=== PATIENT | female | born 1945 | race Caucasian/White ===

== ENCOUNTER 2018-08-20 07:42 | Day surgery (SDC) | payer MEDICARE, OTHER ==
[~2018-08-20 07:42] MED LIST: Lidocaine 1%/Sod Bicarbonate in NS 8.4% 1 ML Syringe IDERM PRN; Sodium Chloride 0.9% 10 ML Syringe FLUSH PRN
[2018-08-20] MEDS: Lactated Ringers 1,000 ML IV SCH ×2 (08:10→14:15)
[2018-08-20] MEDS ORDERED: Propofol 200 MG/20 ML SDV ONE (09:14)
[2018-08-20] MEDS ORDERED: fentaNYL 100 MCG/2 ML SDV ONE ×2 (09:15→10:38)
[2018-08-20] MEDS ORDERED: Midazolam 1 MG/ML 2 ML SDV ONE (09:15)
[2018-08-20] MEDS ORDERED: Lidocaine 1% with EPINEPHrine 1:100,000 20 ML MDV ONE ×2 (09:57)
[2018-08-20] MEDS ORDERED: Bupivacaine 0.5%/EPINEPHrine 1:200,000 50 ML MDV ONE (09:57)
[2018-08-20] MEDS ORDERED: Methylene Blue 50 MG/10 ML Ampule ONE (10:07)
--- NOTE | 2018-08-20 11:09 | US ---
Ultrasound-guided needle localizing impression of right breast lesion Procedure was explained to the patient. Patient agreed to the study and consent had been signed. Abnormality was localized by ultrasound. Patient then prepped and draped in the usual fashion. Skin was anesthetized with 1% lidocaine. Needle was placed through the lesion and needle replaced with spring-hook wire. Two-view mammogram study was obtained which will be dictated separately. Impression: 1. Successful ultrasound-guided placement of localization wire within right breast lesion. Diagnostic code #2
--- NOTE | 2018-08-20 11:09 | MY ---
Mammogram: Two views were obtained with needle localization wire in place. Needle localization wire passes through the left breast mass in close approximation to stereotactic marking clip. Impression: 1. Successful needle localization as noted above. Diagnostic code #2
[2018-08-20] MEDS ORDERED: ceFAZolin 1 GM Vial ONE ×2 (11:15)
[2018-08-20] MEDS ORDERED: Ondansetron 4 MG/2 ML SDV ONE (11:17)
[2018-08-20] MEDS ORDERED: Ketorolac 30 MG/ML SDV ONE (11:17)
[2018-08-20] MEDS ORDERED: ePHEDrine/Normal Saline 25 MG/5 ML Syringe ONE (11:23)
[2018-08-20] MEDS ORDERED: Lactated Ringers 1,000 ML ONE (11:56)
--- NOTE | 2018-08-20 12:53 | MY ---
Addendum: Previous report states left breast mass which is incorrect. Mass was within the right breast and this was a specimen radiograph exam from previous right breast lumpectomy. --- Addendum1 above dictated on [08/20/2018 12:54] by [Santiago Reeder, Duke Perales] --- --- Addendum1 above signed on [08/20/2018 12:55] by [Santiago Reeder Hilton J.] --- --- Original report below dictated on [08/20/2018 12:48] by [Santiago Reeder, Duke Perales] --- --- Original report below signed on [08/20/2018 12:50] by [Santiago Reeder, Duke Perales] --- Specimen radiograph: Single radiographic view was obtained of specimen obtained during biopsy. Study shows stereotactic marking clip and localization wire in place. Left breast mass is also centered within the specimen. Impression: 1. Study appears to represent successful lumpectomy of previous left breast mass as described above. Diagnostic code #2 --- Addendum1 signed ---
--- NOTE | 2018-08-20 13:22 | PCM.PRNOTE ---
- Free Text/Narrative Note: DATE OF PROCEDURE: PROCEDURE: Right breast wire localized lumpectomy with sentinel lymph node biopsy PREOP DX: Right breast mass POSTOP DX: same SURGEON: Mindy Woodall MD PLASTIC MAKER: Tex Claire CRNA ANESTHETIC: General anesthetic EBL: 40 mL IVF: 1400 mL UOP: 0 mL FINDINGS: 1. Right breast mass with localization wire 2. Right axillary lymph nodes with uptake of lymphoscintigraphy dye and blue dye PATHOLOGY: 1. Right breast lumpectomy 2. Lateral margin (of lumpectomy) 3. Right axillary node #1 (ex vivo count 196) 4. Right axillary node #2 (ex vivo count 184) 5. Right axillary node #3 (ex vivo count 243) 6. Right axillary node #4 (ex vivo count 47) 7. Right axillary node #5 (ex vivo count 31) INDICATION: The patient is a 73-year old lady who initially presented with a lump in the right breast. 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 Surgical intervention was recommended. The risks, benefits, alternative and rationale of surgery explained including the risk of not operating, bleeding, infection, seroma or hematoma. Informed consent was obtained for a wire localized right lumpectomy with sentinel lymph node biopsy. DESCRIPTION OF THE PROCEDURE: The patient was brought to the operating room and placed in supine position on the operating table. General anesthesia was induced without difficulty. Preoperative antibiotics were administered according to SCIP guidelines. Lymphoscintigraphy dye was injected in 4 quadrants around the areolar border. The right chest and axilla were prepped and draped in a sterile fashion. A surgical timeout was performed. We then injected blue dye in 4 quadrants around the area where border. The breast was then massaged for 5 minutes The incision was marked along the superior Jeffrey her border. We also marked the place of highest uptake in the axilla. We began by injecting local anesthetic into the area of the incisions. An incision was made and flaps were raised orienting the incision to the area of the localization wire. Once the wire was located, it was brought into the surgical field in through the incision. The specimen was dissected from the surrounding tissues using the Bovie device. The specimen was oriented and sent to mammography for analysis of clip and wire placement in the specimen. The remaining cavity was inspected to ensure hemostasis and no additional abnormalities. Hemostasis was achieved using the Bovie device. Cavity was irrigated using sterile water. We then turned our attention to the axilla. A incision was made along the skin crease in the axilla. We then used the probe to isolate the area of high uptake. Five lymph nodes were removed with the highest count being 243. The axilla was not completely silent, however, we did not see any areas with counts above the 20s to 30s range. No additional tissue sent specimens were taken given that this was only lymph node biopsy. Once mammography confirmed placement of the clip and wire in the specimen with appropriate orientation, the subcutaneous tissue was re-approximated with interrupted 3-0 vicryl sutures in the dermal tissue. The skin was closed with 4- 0 Monocryl sub-cuticular running suture. Dermabond surgical glue was used to cover the skin. A dry dressing and surgical bra was placed. All instrument and sponge counts were correct. The patient was [] extubated and transferred to the PACU in stable condition. Mindy Woodall MD General Surgery
--- NOTE | 2018-08-20 13:22 | PCM.OPNOTE ---
- General Post-Op/Procedure Note Date of Surgery/Procedure: 08/20/18 Operative Procedure(s): wire localized right breast lumpectomy with sentinel lymph node biopsy Findings: 1. Right breast mass with localization wire 2. 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 Right breast lumpectomy 2. Lateral margin (of lumpectomy) 3. Right axillary node #1 4. Right axillary node #2 5. Right axillary node #3 6. Right axillary node #4 7. Right axillary node #5 Fluid Replacement, Intraop: 1,400 Output, Urine Amount: 0 EBL in mLs: 40 Condition: Good
[2018-08-20] MEDS ORDERED: fentaNYL 100 MCG/2 ML SDV IVPUSH PRN (13:40)
[2018-08-20] MEDS ORDERED: HYDROmorphone 0.5 MG/0.5 ML Syringe IVPUSH PRN (13:40)
--- NOTE | 2018-08-20 13:54 | PCM.POSTAN ---
POST ANESTHESIA ASSESSMENT - MENTAL STATUS Mental Status: Oriented, Other (Drowsy) - VITAL SIGNS Pulse Rate: 60 SaO2: 98 Resp Rate: 16 Blood Pressure: 116/53 - RESPIRATORY Respiratory Status: Respiratory Rate WNL, Airway Patent, O2 Saturation Stable - CARDIOVASCULAR CV Status: Pulse Rate WNL, Blood Pressure Stable - GASTROINTESTINAL GI Status: No Symptoms - PAIN Pain Score: 0 - POST OP HYDRATION Hydration Status: Adequate & Stable
[2018-08-20] MEDS ORDERED: Ondansetron 4 MG/2 ML SDV IVPUSH SCH (13:55)
[2018-08-20] MEDS ORDERED: traMADol 50 MG Tab PO PRN (14:04)
[2018-08-20] MEDS ORDERED: Haloperidol Lactate 5 MG/ML SDV IVPUSH PRN (14:26)
[2018-08-20] MEDS ORDERED: Dexamethasone 4 MG/ML SDV IVPUSH PRN (14:45)
[2018-08-20] MEDS ORDERED: Dexamethasone 4 MG/ML SDV ONE (14:46)
--- NOTE | 2018-08-20 16:12 | PCM.SN ---
- Free Text/Narrative Note: Called to PACU for patient evaluation. On arrival Alina was diaphoretic and pale. O2 reapplied per NC. EKG ordered, PVCs noted on monitor, no baseline EKG on record BP stable. Fentanyl and Ofirmev requested for pain control at 8/10 currently. Hydromorphone given previously lead to nausea. Nausea continues and patient states it is getting worse. Anesthetic record reviewed. Dexamethasone 4 mg IV given. Alina has received ondansetron and is not getting relief. PVCs on monitor and 12 lead EKG, denies chest pain or SOB, EKG read per Dr. De La Cruz. QT noted at normal interval on EKG. Haloperidol 1 mg ordered. Alina states her pain is improving and she is resting more comfortably. Nausea is improving as well. PVCs occasional and unifocal. Patient transferred to extended recovery for continued monitoring. I have updated Dr. Dempsey at this time, and she is agreeable to the plan. Katt Mast SHEEP RANCHER
--- NOTE | 2018-08-20 16:24 | PCM48HPAN ---
Post Anesthesia Note - EVALUATION WITHIN 48HRS OF ANESTHETIC Vital Signs in Normal Range: Yes Patient Participated in Evaluation: Yes Respiratory Function Stable: Yes Airway Patent: Yes Cardiovascular Function Stable: Yes Hydration Status Stable: Yes Pain Control Satisfactory: Yes Nausea and Vomiting Control Satisfactory: Yes Mental Status Recovered: Yes - COMMENTS/OBSERVATIONS Free Text/Narrative:: Alina is resting comfortable, feeling much better.
--- NOTE | 2018-08-23 08:53 | NM ---
Lymph node imagin.0 mCi of technetium 99m sulfur colloid injected by surgeon, no imaging was obtained.
== END 2018-08-20 18:52 | disposition home or self-care (01) ==
LOC: JD.SDS 07:42 → JD.MS 15:20 → JD.SDS 18:52
PROVIDERS: ATTEND Surgery
DX: C50.911 Malignant neoplasm of unspecified site of right female breast (principal); Z17.0 Estrogen receptor positive status [ER+]; Z80.3 Family history of malignant neoplasm of breast; Z88.2 Allergy status to sulfonamides; Z79.899 Other long term (current) drug therapy
CPT/HCPCS: 19301; 38500; 38792; 76098; 76942; 77065; 82962; 93005; A9541; J0131; J0690; J1100; J1170; J1630; J1885; J2001; J2250; J2405; J2704; J3010; J3490; J7050; J7120; 01610